=== PATIENT | male | born 1985 | race Caucasian/White ===

== ENCOUNTER 2021-09-15 22:30 | Inpatient (IN) | payer OTHER ==
[~2021-09-15] VITALS: Ht 180.3 cm; Wt 113.4 kg
[2021-09-16 00:31] LABS: HEMOGLOBIN 13.9 gm/dl (14.0-17.5); RED BLOOD COUNT 4.78 M/UL (4.20-5.50); WHITE BLOOD COUNT 8.8 K/UL (4.5-11.0)
[2021-09-16 00:49] LABS: BUN/CREATININE RATIO 13 (0-10)
[2021-09-16 09:28] LABS: HEMOGLOBIN 13.4 gm/dl (14.0-17.5); RED BLOOD COUNT 4.64 M/UL (4.20-5.50); WHITE BLOOD COUNT 7.9 K/UL (4.5-11.0)
[2021-09-16 09:46] LABS: BUN/CREATININE RATIO 16 (0-10)
[2021-09-16] MEDS ORDERED: CLINDAMYCIN HC300 MG PO (18:15)
== END 2021-09-16 18:12 | disposition left against medical advice (07) | DRG 540 ==
LOC: ER1 22:30 → CDU 09-16 04:46 → M/S 09-16 04:46
PROVIDERS: Internal Medicine; Physician Assistant Medical; ADMIT Internal Medicine
DX: M86.141 Other acute osteomyelitis, right hand (principal); L02.511 Cutaneous abscess of right hand; J45.909 Unspecified asthma, uncomplicated; I10 Essential (primary) hypertension; F17.210 Nicotine dependence, cigarettes, uncomplicated; F19.10 Other psychoactive substance abuse, uncomplicated; Z82.49 Family history of ischemic heart disease and other diseases of the circulatory system
CPT/HCPCS: 36415; 71045; 73130; 80048; 80053; 80307; 82962; 83036; 85025; 85027; 85652; 86140; 87040; 87070; 87077; 87186; 87205; 96374; 96375; 99284; J0690; J0696; J1885; J2001; J2250; J2405; J2704; J3010; J3370; J7070